=== PATIENT | female | born 1950 | race Caucasian/White ===

== ENCOUNTER 2017-02-24 12:40 | Emergency (ER) | payer MEDICARE ==
[2017-02-24] MEDS ORDERED: HYDROmorphone 1 MG/ML Syringe IM ONE (13:37)
[2017-02-24] MEDS ORDERED: Cyclobenzaprine 10 MG Tab PO ONE (13:37)
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
[2017-02-24] MEDS ORDERED: fentaNYL 100 MCG/2 ML SDV NASBOTH ONE (14:26)
[2017-02-24] MEDS ORDERED: fentaNYL 100 MCG/2 ML SDV IM ONE ×2 (15:03→16:22)
[2017-02-24] MEDS ORDERED: fentaNYL 100 MCG/2 ML SDV IVPUSH ONE (15:59)
[2017-02-24 17:51] VITALS: BP 125/54
== END 2017-02-24 17:38 | disposition home or self-care (01) ==
LOC: JP.ED 12:40
DX: M54.5 Low back pain (principal); J44.9 Chronic obstructive pulmonary disease, unspecified; F17.210 Nicotine dependence, cigarettes, uncomplicated; Z90.49 Acquired absence of other specified parts of digestive tract; Z90.710 Acquired absence of both cervix and uterus; Z98.890 Other specified postprocedural states; Z79.899 Other long term (current) drug therapy; Z88.5 Allergy status to narcotic agent
CPT/HCPCS: 96372; 99283; A9270; J1170; J3010